=== PATIENT | male | born 1975 | race Asian ===

== ENCOUNTER 2019-09-13 00:52 | Emergency (ER) | payer SELFPAY ==
[2019-09-13 01:35] LABS: ABS Eosinophils 0.3 10^3/ul (0-0.6); ABS Lymphocytes 2.6 10^3/ul (1.0-4.8); ABS Monocytes 0.3 10^3/ul (0-0.8); ABS Neutrophils 3.6 10^3/ul (1.5-7.7); Eosinophil % 4.9 %; Hematocrit 45 % (42-52); Hemoglobin 15.4 g/dL (14.0-18.0); Lymphocyte % 38.1 %; Mean Corpuscular HGB Conc 35 g/dL (31-36); Mean Corpuscular Hemoglobin 30 pg (27-31); Mean Corpuscular Volume 86 fL (80-94); Mean Platelet Volume 7.8 fL (7.4-10.4); Platelet Count 211 10^3/uL (150-450); Red Blood Count 5.24 10^6 /uL (4.18-5.48); Red Cell Distribution Width 13 % (10-15); White Blood Count 6.9 10^3/uL (3.5-10.8)
[2019-09-13 01:52] LABS: ALT 20 U/L (7-52); AST 27 U/L (13-39); Albumin 4.5 g/dL (3.2-5.2); Albumin/Globulin Ratio 1.7 (1-3); Alkaline Phosphatase 39 U/L (34-104); Anion Gap 9 mmol/L (2-11); BUN/Creatinine Ratio 20.3 (8-20); Blood Urea Nitrogen 16 mg/dL (6-24); CO2 Carbon Dioxide 25 mmol/L (22-32); Calcium 9.3 mg/dL (8.6-10.3); Chloride 110 mmol/L (101-111); EGFR African American 130.1 (>60); EGFR Non-African American 107.6 (>60); Globulin 2.7 g/dL (2-4); Glucose 96 mg/dL (70-100); Potassium 3.5 mmol/L (3.5-5.0); Sodium 144 mmol/L (135-145); Total Protein 7.2 g/dL (6.4-8.9)
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
[2019-09-13 01:56] LABS: Urine Benzodiazepine Screen None Detected (None Detect); Urine Opiates Screen None Detected (None Detect)
[2019-09-13 02:04] LABS: Urine Appearance Clear; Urine Bilirubin Negative (Negative); Urine Blood Negative (Negative); Urine Color Straw; Urine Glucose Negative (Negative); Urine Ketones Negative (Negative); Urine Nitrite Negative (Negative); Urine Protein Negative (Negative); Urine Specific Gravity 1.005 (1.010-1.030); Urine Urobilinogen Negative (Negative)
[2019-09-13 02:22] LABS: Acetaminophen < 15 mcg/mL; Alcohol 299 mg/dL (<10); Salicylate < 2.50 mg/dL (<30)
--- NOTE | 2019-09-13 07:09 | ED ---
Progress - Progress Note Progress Note: This pt is a sign out from Dr. Dinh to Dr. Camejo at shift change on 09/13/19 at 0700 pending sobriety. Re-Evaluation - Re-Evaluation First Eval Re-Evaluation Time: 08:00 Change: Improved Comment: Patient is awake and is feeling better. He will be discharged home with follow up from PCP. Course/Dx - Course Course Of Treatment: This patient was signed out from Dr. Dinh and is awaiting sobriety. On exam the patient is alert and oriented 3, the patient is eating and drinking without nausea and vomiting. Patients will be discharged home with follow-up from his PCP. Patient is hemodynamically stable , alert and oriented 3. - Diagnoses Provider Diagnoses: Alcohol intoxication Discharge ED - Sign-Out/Discharge Documenting (check all that apply): Patient Departure - Discharge home, Receiving Sign-Out Receiving patient FROM: May Dinh - Discharge Plan Condition: Stable Disposition: HOME Patient Education Materials: Alcohol Intoxication (ED) [facility]errals: [facility] [Outside] Additional Instructions: FOLLOW UP WITH YOUR PRIMARY CARE PROVIDER IN 2-3 DAYS. RETURN TO THE EMERGENCY DEPARTMENT FOR ANY WORSENING OR NEW SYMPTOMS. - Billing Disposition and Condition Condition: STABLE Disposition: Home - Attestation Statements Document Initiated by Scribe: Yes Documenting Scribe: Asmita Bell Provider For Whom Jose Rafael is Documenting (Include Credential): David Camejo MD Scribe Attestation: Asmita Velasquez scribed for David Camejo MD on 09/15/19 at 0750. Scribe Documentation Reviewed: Yes Provider Attestation: The documentation as recorded by the Asmita ivory accurately reflects the service I personally performed and the decisions made by me, David Camejo MD Status of Scribe Document: Viewed
[2019-09-13] MEDS ORDERED: Acetaminophen TAB* 325 MG PO ONE (08:47)
[2019-09-13 09:36] VITALS: BP 157/96
== END 2019-09-13 09:34 | disposition home or self-care (01) ==
LOC: ED 00:52
DX: F10.929 Alcohol use, unspecified with intoxication, unspecified (principal); Z87.891 Personal history of nicotine dependence
CPT/HCPCS: 36415; 80053; 80307; 80320; 80329; 81003; 83605; 85025; 99285; A9270-GY; G0480

== ENCOUNTER 2019-09-13 14:33 | Emergency (ER) | payer SELFPAY ==
[2019-09-13 15:11] VITALS: BP 142/79
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
== END 2019-09-13 15:12 ==
LOC: ED 14:33
DX: F10.129 Alcohol abuse with intoxication, unspecified (principal); Z87.891 Personal history of nicotine dependence
CPT/HCPCS: 99282